=== PATIENT | female | born 1950 | race Caucasian/White ===

== ENCOUNTER → 2017-11-05 | Outpatient (CLI) | payer MEDICARE, OTHER ==
[~2017-11-05] MED LIST: ACE325 PO; CALC-922 PO; CEPH500T7 PO; CITA-156 PO; DIP25 PO; DUL20 PO; ESOM20CA31 PO; EZET1TAB55 PO; EZET1TAB61 PO; IBUP200C72 PO; LOR5/325 PO; OLME1TAB53 PO; PAN20 PO; PAN40 PO; TOBOD OD; TOLT2CAP7 PO
--- NOTE | 2017-11-05 17:34 | RADIOLOGY IMAGING REPORT ---
FACILITY: [facility] PATIENT NAME: ESTEFANY CORNELIUS : [id number] MR: [id number] V: [id number] EXAM DATE: [id number] ORDERING PHYSICIAN: RAYSHAWN LUCAS TECHNOLOGIST: Berenice Kim PROCEDURE:BILATERAL DIGITAL SCREENING MAMMOGRAM WITH CAD ASSISTED INTERPRETATION & 3D TOMOSYNTHESIS COMPARISON:Prior mammograms 11/04/16, 10/30/15, 10/28/14, 10/11/13, 08/31/12, 07/24/11. INDICATIONS:SCREENING FINDINGS: Small amount of fibroglandular tissue is seen throughout the breasts. The parenchymal pattern has remained stable allowing for difference in mammographic technique & patient positioning. There is no evidence of malignant appearing mass, malignant appearing calcifications or other secondary sign of malignancy in either breast. DIAGNOSTIC CATEGORY 1--NEGATIVE. RECOMMENDATIONS: ROUTINE MAMMOGRAM AND CLINICAL EVALUATION. IMPRESSION: BIRADS 1: Negative. No significant abnormality is seen. Dictated by: Santa Post M.D. on 11/05/2017 at 16:09 Transcribed by: LATISHA on 11/05/2017 at 16:19 Approved by: Santa Post M.D. on 11/05/2017 at 17:33 [facility]
== END ==
LOC: MAMO 01:49
PROVIDERS: ATTEND Family Medicine
DX: Z12.31 Encounter for screening mammogram for malignant neoplasm of breast (principal)
CPT/HCPCS: 77063; 77067